=== PATIENT | male | born 1945 | race Caucasian/White ===

== ENCOUNTER → 2021-02-06 16:08 | Outpatient (CLI) | payer MEDICARE, MEDICAID ==
[~2021-02-06 16:08] MED LIST: ACETAMINOPHEN325 MG PO; ASPIRIN81 MG PO; CLARITIN 10 MG10 MG PO; CLEOCIN HCL300 MG PO; CLONIDINE HCL0.1 MG PO; FLORANEX / LACT1 TAB PO; GABAPENTIN300 MG PO; GLIPIZIDE5 MG PO; HYDRALAZINE HCL25 MG PO; LEVEMIR IN100 UNITS/ SC; LEVOXYL25 MCG PO; LISINOPRIL20 MG PO; MAG-OX 400 MG400 MG PO; MELATONIN 3 MG1 TAB PO; METAMUCIL PACKE1 PKT PO; METOPROLOL TART50 MG PO; MUCINEX600 MG PO; NORVASC10 MG PO; NOVOLOG100 UNIT/1 SC; PLAVIX75 MG PO; PRAVASTATIN SOD10 MG PO
[2021-02-08 12:31] VITALS: BMI 32.7
== END | disposition home or self-care (01) ==
LOC: D.MRI 16:00
PROVIDERS: ATTEND Family Medicine
DX: E11.621 Type 2 diabetes mellitus with foot ulcer (principal)

== ENCOUNTER 2021-02-07 12:17 | Inpatient (IN) | payer MEDICARE, MEDICAID ==
[~2021-02-07] VITALS: Ht 182.9 cm; Wt 109.3 kg
[2021-02-07] MEDS ORDERED: ASPIRIN81 MG PO (12:37)
[2021-02-07] MEDS ORDERED: NORVASC10 MG PO (12:37)
[2021-02-07] MEDS ORDERED: FLORANEX / LACT1 TAB PO (12:37)
[2021-02-07] MEDS ORDERED: CLARITIN 10 MG10 MG PO (12:38)
[2021-02-07] MEDS ORDERED: CLEOCIN HCL300 MG PO (12:38)
[2021-02-07] MEDS ORDERED: CLONIDINE HCL0.1 MG PO (12:38)
[2021-02-07] MEDS ORDERED: GLIPIZIDE5 MG PO (12:39)
[2021-02-07] MEDS ORDERED: GABAPENTIN300 MG PO (12:39)
[2021-02-07] MEDS ORDERED: MUCINEX600 MG PO (12:39)
[2021-02-07] MEDS ORDERED: LEVEMIR IN100 UNITS/ SC (12:40)
[2021-02-07] MEDS ORDERED: HYDRALAZINE HCL25 MG PO (12:40)
[2021-02-07] MEDS ORDERED: LEVOXYL25 MCG PO (12:41)
[2021-02-07] MEDS ORDERED: LISINOPRIL20 MG PO (12:41)
[2021-02-07] MEDS ORDERED: METOPROLOL TART50 MG PO (12:41)
[2021-02-07] MEDS ORDERED: MAG-OX 400 MG400 MG PO (12:42)
[2021-02-07] MEDS ORDERED: METAMUCIL PACKE1 PKT PO (12:42)
[2021-02-07] MEDS ORDERED: MELATONIN 3 MG1 TAB PO (12:42)
[2021-02-07] MEDS ORDERED: NOVOLOG100 UNIT/1 SC ×2 (12:43)
[2021-02-07] MEDS ORDERED: PLAVIX75 MG PO (12:44)
[2021-02-07] MEDS ORDERED: PRAVASTATIN SOD10 MG PO (12:44)
[2021-02-07] MEDS ORDERED: ACETAMINOPHEN325 MG PO (12:45)
[2021-02-07 13:12] LABS: BASOPHILS 0.4 % (0-2); EOSINOPHILS 9.4 % (0-7); HEMATOCRIT 39.3 % (42.0-54.0); HEMOGLOBIN 13.1 g/dL (13.5-17.5); LYMPHOCYTES 17.6 % (15-50); MCHC 33.2 g/dL (31.0-37.0); MCV 87.3 fL (80.0-100.0); MEAN PLATELET VOLUME 6.9 fL (7.4-10.4); MONOCYTES 7.4 % (2-11); NEUTROPHILS 65.2 % (40-80); PLATELET COUNT 269 10x3/uL (130-400); RBC 4.51 10x6/uL (4.20-6.10); RDW 14.1 % (11.5-14.5); WBC 9.9 10x3/uL (4.8-10.8)
[2021-02-07 13:20] LABS: ANION GAP 14.7 mmol/L (8-16); CALCIUM 8.8 mg/dL (8.5-10.1); CARBON DIOXIDE 25.7 mmol/L (21.0-32.0); CREATININE - SERUM 1.4 mg/dL (0.6-1.3); POTASSIUM - SERUM 4.4 mmol/L (3.5-5.1)
[2021-02-07 13:26] LABS: ALBUMIN 3.6 g/dL (3.4-5.0); BILIRUBIN - TOTAL 0.43 mg/dL (0.2-1.3); PROTEIN - SERUM 7.6 g/dL (6.4-8.2)
[2021-02-07 17:57] LABS: INR 0.97 (0.85-1.17); PROTIME 11.9 SECONDS (11.6-15.0)
[2021-02-07 18:03] VITALS: BP 122/66; BMI 32.7
--- NOTE | 2021-02-07 18:30 | NUR ---
PATIENT ADMITTED. SITTING UP IN BED EATING WITH NO COMPLAINTS. IV INTACT. VANC INFUSING. CALL LIGHT WITHIN REACH.
[2021-02-07 19:11] LABS: ERYTHROCYTE SEDIMENTATION RATE 46 mm/hr (0-20)
--- NOTE | 2021-02-07 19:30 | NUR ---
AFTER BEDSIDE REPORT PT WAS SODA FLAKER LIGHT, ENTERED PT ROOM AND HE IMMEDIATELY BEGAN YELLING AT THIS NURSE THAT HE DID NOT THINK IV PUMP WAS WORKING. CHECKED PUMP AND EVERTHING WAS WORKING. PT WAS VERY ADAMANT AND CONTINUED TO YELL OVER THIS NURSE THAT IT HAD NOT BEEN WORKING AND THERE WAS NO WAY IN COULD BE DRIPPING IN THE CHAMBER SO SLOW AND BE WORKING. DISCONNECTED PT FROM IV AND SHOWED IT DRIPPING AND EXPLAINED HOW THE PUMP WORKED AND PT CONTINUED TO YELL AT THIS NURSE SAYING "ARE YOU STUPID" AND IT DID NOT MATTER WHAT I SAID BECAUSE HE STILL DID NOT BELIEVE IT WAS WORKING. ANOTHER NURSE CAME TO ROOM AT THIS TIME AND EXPLAINED HOW THE IV PUMP WORKS. PT JUST KEPT STATING "OK WHATEVER YOU SAY." PT DENIED OTHER NEEDS AT THIS TIME. CL IN REACH
[2021-02-07 20:12] VITALS: BP 171/65
--- NOTE | 2021-02-07 21:30 | NUR ---
ENTERED PT ROOM WITH HS MEDS. REVIEWED MEDS WITH PT AND PT BECAME ANGRY STATING WE HAVE HIS MEDS ALL WRONG. PT STATES THAT THE MEDS ARE DIFFERENT COLORS AND SHAPES THAN HE TAKES AT THE [facility]. EXPLAINED TO PT THAT THESE ARE THE SAME MEDS AND DOSAGES THOSE BUT SOME TIMES THEY ARE DISPENSED LOOKING DIFFERENTLY THAN WHAT THEY MAY LOOK LIKE AT HIS FACILITY. PT LAUGHED AND AGAIN STATED THESE ARE NOT THE SAME MEDICATIONS HE TAKES AND BEGAN CALLING THIS NURSE INCOMPETENT. TRIED SEVERAL TIMES TO EXPLAIN TO PT WHY THEY MAY LOOK DIFFERENT BUT PT CONTINUOUSLY YELLED OVER THIS NURSE AND WOULD NOT LET ME SPEAK. THIS NURSE TOLD PT HE COULD EITHER TAKE THE MEDS OR REFUSE, THAT WAS HIS RIGHT BUT THAT I HAVE EXPLAINED MULTIPLE TIMES WHAT EACH MED WAS. PT EVENTUALLY TOOK ALL MEDS. THIS NURSE THEN ATTEMPTED TO DO FSBS. PT CUSSING AT THIS NURSE STATING THAT THIS NURSE AND HOSPITAL CANNOT DO ANYTHING RIGHT, THAT THE IV IS NOT RIGHT, HE IS NOT GETTING THE RIGHT MEDICATIONS AND DID NOT WANT TO THIS NURSE TO CHECK HIS BLOOD SUGAR STATING "I CAN ALREADY TELL YOU IT IS HIGH SO YOU DON'T EVEN HAVE TO CHECK IT, JUST GIVE ME THE ORDERED INSULIN" EXPLAINED TO PT THAT HE WAS ON A SLIDING SCALE SO I COULD ONLY GIVEN HIM INSULIN BASED ON WHAT HIS BLOOD SUGAR. HE STATES MULTIPLE TIMES THAT IT WAS GOING TO BE OVER 300 SO JUST GIVE HIM 12 UNITS THAT THIS NURSE WILL GIVE HIM TOO MUCH AND CAUSE HIS BLOOD SUGAR TO BE TOO LOW. ASKED PT SEVERAL TIMES IF I COULD CHECK HIS SUGAR STILL AND WE WOULD GO FROM THERE. FSBS 277. BASED OFF SLIDING SCALE PT WOULD GET 6 UNITS INSULIN. PT LAUGHED AND YELLED "NO I NEED 12 UNITS" TOLD PT I COULD NOT GIVE HIM MORE THAN WHAT WAS ORDERED THAT IS WHAT THE DOCTOR WANTED. PT STATES "YOU WILL SEE WHEN MY BLOOD SUGAR IS REALLY HIGH. JUST GIVE ME THE DAMN INSULIN" THIS NURSE GAVE PT THE 6 UNITS OF INSULIN. PT THEN ASKED HOW MUCH LANTUS HE WOULD BE GETTING, TOLD PT 55 UNITS. PT LAUGHED AND STATES "WOW THE ONE THING YOU CAN DO RIGHT. WHY IS IT SO HARD TO GIVE ME THE RIGHT AMOUNT OF LANTUS BUT CAN'T GIVE ME THE RIGHT HUMALOG" ATTEMPT SEVERAL TIMES TO EXPLAIN TO PT THAT THIS IS WHAT THE DOCTOR ORDERED AND IF HIS BLOOD SUGAR CONTINUES TO BE HIGH ON THIS SLIDING SCALE THAT IS COULD INCREASED. PT CONTINUED TO YELL OVER ME STATING I WAS GOING TO DO NOTHING AND THAT HE WANTED TO SPEAK WITH THE DOCTOR HIMSELF. EXPLAINED TO PT DOCTOR WAS NOT HERE AT THIS TIME. PT ASKED MULTIPLE TIMES WHY HIS DOCTOR COULD NOT COME TO HIS ROOM RIGHT NOW AND THAT HE CAME TO THE HOSPITAL TO SEE A DOCTOR. ASKED PT WHAT DOCTOR HE WANTED TO SEE. PT STATES HE CAME TO HOSPITAL TO SEE AN ORTHOPEDIC SURGEON. THIS NURSE READ THE ORTHOPEDIC SURGEONS NOTE TO HIM FROM [facility] AND THAT [facility] HAS CONSULTED PODIATRY. PT AT THIS POINT WAS IRATE STATING HE HAS ALREADY SEEN SENIOR BIOINFORMATICS SPECIALIST AND HOW STUPID WE ARE AND HE "NEEDS TO GO TO A DIFFERENT HOSPITAL THAT KNOWS WHAT THEY ARE DOING" TOLD PT HE COULD SPEAK TO THE ORTHOPEDIC SURGEON ABOUT THAT TOMORROW. PT THEN ASKED THIS NURSE TO LEAVE THE ROOM AFTER GIVING HIM HIS INSULIN AND SENDING IN SOMEONE WHO KNOWS WHAT THEY ARE DOING. HORTICULTURAL WORKER NOTIFIED.
[2021-02-08 07:13] LABS: EOSINOPHILS 8.1 % (0-7); HEMATOCRIT 35.9 % (42.0-54.0); LYMPHOCYTES 9.8 % (15-50); MCH 29.3 pg (26.0-34.0); MCHC 33.4 g/dL (31.0-37.0); MCV 87.8 fL (80.0-100.0); MONOCYTES 5.8 % (2-11); NEUTROPHILS 75.3 % (40-80); PLATELET COUNT 238 10x3/uL (130-400); RBC 4.09 10x6/uL (4.20-6.10); RDW 14.5 % (11.5-14.5); WBC 8.3 10x3/uL (4.8-10.8)
[2021-02-08 07:16] LABS: ALBUMIN 3.1 g/dL (3.4-5.0); ANION GAP 13.8 mmol/L (8-16); BILIRUBIN - TOTAL 0.43 mg/dL (0.2-1.3); CALCIUM 8.5 mg/dL (8.5-10.1); CREATININE - SERUM 1.5 mg/dL (0.6-1.3); POTASSIUM - SERUM 4.8 mmol/L (3.5-5.1); PROTEIN - SERUM 6.8 g/dL (6.4-8.2)
--- NOTE | 2021-02-08 10:00 | NUR ---
PATIENT IN BED WITH IV INTACT. NO COMPLAINTS OR SIGNS OF DISTRESS. STATED HE DOESNT USE LANTUS IN A PEN AND DOESNT WANT TO TAKE MIRALAX STATED HE TAKES METAMUCIL TABLETS. EXPLAINED I WOULD ASK IF PHARMACY CARRIED THE VIAL AND METAMUCIL TABS. VERBALIZED UNDERSTANDING.
--- NOTE | 2021-02-08 11:20 | NUR ---
EXPLAINED TO PATIENT PHARMACY DOESNT HAVE A VIAL OF LANTUS OR THE METAMUCIL TABS. PATIENT STATED HE WOULD JUST TAKE WHAT WE HAVE.
--- NOTE | 2021-02-08 11:40 | NUR ---
URINE COLLECTED AND SENT TO LAB.
[2021-02-08 12:31] VITALS: Ht 182.9 cm; Wt 109.3 kg
[2021-02-08 12:53] VITALS: BP 151/67
--- NOTE | 2021-02-08 13:09 | NUR ---
PATIENT IN BED EATING AT THIS TIME. NO COMPLAINTS OR SIGNS OF DISTRESS. CALL LIGHT WITHIN REACH.
[2021-02-08 13:19] LABS: BILIRUBIN NEGATIVE (NEGATIVE); KETONE NEGATIVE (NEGATIVE); NITRITE NEGATIVE (NEGATIVE); UROBILINOGEN NORMAL mg/dL (< 2)
[2021-02-08 13:20] LABS: BACTERIA RARE HPF (NONE SEEN); SQUAMOUS EPITHELIAL 0-5 HPF (0-4); WHITE CELLS - URINE 0-5 HPF (0-1)
--- NOTE | 2021-02-08 14:38 | NUR ---
PATIENT IN BED RESTING QUIETLY. IV INTACT. VANC INFUSING. CALL LIGHT IN REACH.
[2021-02-08 17:05] VITALS: BP 160/63
--- NOTE | 2021-02-08 17:55 | NUR ---
PATIENT IN BED WITH IV INTACT. NO COMPLAINTS OR SIGNS OF DISTRESS. CALL LIGHT WITHIN REACH.
[2021-02-08 21:57] VITALS: BP 159/70
--- NOTE | 2021-02-09 03:56 | NUR ---
I have reviewed this patient and I concur with the Shift Assessment completed by the Licensed Practical Nurse today this shift.
--- NOTE | 2021-02-09 07:25 | NUR ---
REC'D IN BED WITH EYES CLOSED EASILY TO AROUSED WHEN NAME IS CALLED. RESP EVEN AND UNLABORED WITH NO DISTRESS NOTED. CAN EXPRESS NEEDS AND WANTS. NO C/O NOTED. ASSESSMENT COMPLETED. C/L IN REACH AT BEDSIDE.
--- NOTE | 2021-02-09 08:00 | NUR ---
PATIENT IS WITHOUT DISTRESS.CALL LIGHT IN [facility] [place]
[2021-02-09 09:28] VITALS: BP 154/57
[2021-02-09 11:48] LABS: BASOPHILS 0.8 % (0-2); EOSINOPHILS 12.2 % (0-7); HEMATOCRIT 36.7 % (42.0-54.0); HEMOGLOBIN 12.1 g/dL (13.5-17.5); LYMPHOCYTES 9.7 % (15-50); MCH 29.1 pg (26.0-34.0); MCHC 33.1 g/dL (31.0-37.0); MCV 87.9 fL (80.0-100.0); MEAN PLATELET VOLUME 6.8 fL (7.4-10.4); MONOCYTES 8.1 % (2-11); NEUTROPHILS 69.2 % (40-80); PLATELET COUNT 231 10x3/uL (130-400); RBC 4.18 10x6/uL (4.20-6.10); RDW 14.3 % (11.5-14.5); WBC 7.7 10x3/uL (4.8-10.8)
[2021-02-09 12:00] LABS: ANION GAP 12.5 mmol/L (8-16); BILIRUBIN - TOTAL 0.46 mg/dL (0.2-1.3); CALCIUM 8.5 mg/dL (8.5-10.1); CARBON DIOXIDE 24.3 mmol/L (21.0-32.0); CREATININE - SERUM 1.7 mg/dL (0.6-1.3); POTASSIUM - SERUM 4.8 mmol/L (3.5-5.1); PROTEIN - SERUM 6.6 g/dL (6.4-8.2)
[2021-02-09 12:16] VITALS: BP 146/82
--- NOTE | 2021-02-09 13:27 | NUR ---
PICC LINE CONSULT RELAYED TO DR ESTRADA [facility] AT 1330. WILL PUT IN PICC LINE 02/10. NURSE AIMEE MUNIZ
[2021-02-09 17:08] VITALS: BP 148/50
[2021-02-09 20:00] VITALS: BP 177/67
--- NOTE | 2021-02-09 22:00 | NUR ---
WATCHING TV QUEITLY WITH NO COMPLAINTS VOICED. CL IN REACH
[2021-02-10 00:53] VITALS: BP 150/55
[2021-02-10 07:07] LABS: BASOPHILS 0.6 % (0-2); EOSINOPHILS 13.1 % (0-7); HEMATOCRIT 34.8 % (42.0-54.0); HEMOGLOBIN 11.7 g/dL (13.5-17.5); LYMPHOCYTES 15.3 % (15-50); MCH 29.2 pg (26.0-34.0); MCHC 33.5 g/dL (31.0-37.0); MCV 87.2 fL (80.0-100.0); MEAN PLATELET VOLUME 6.9 fL (7.4-10.4); MONOCYTES 8.1 % (2-11); NEUTROPHILS 62.9 % (40-80); PLATELET COUNT 233 10x3/uL (130-400); RBC 3.99 10x6/uL (4.20-6.10); RDW 14.5 % (11.5-14.5)
--- NOTE | 2021-02-10 07:49 | NUR ---
IN BED RESTING. BED LOW POSITION, CALL LIGHT IN REACH. FREE FROM SIGNS OF DISTRESS. AROUSES TO VOICE. WILL CONITNUE TO MONITOR.
[2021-02-10 08:05] LABS: ANION GAP 12.3 mmol/L (8-16); BILIRUBIN - TOTAL 0.36 mg/dL (0.2-1.3); CARBON DIOXIDE 25.2 mmol/L (21.0-32.0); CREATININE - SERUM 1.5 mg/dL (0.6-1.3); POTASSIUM - SERUM 4.5 mmol/L (3.5-5.1); PROTEIN - SERUM 6.1 g/dL (6.4-8.2)
[2021-02-10 08:53] VITALS: BP 167/69
--- NOTE | 2021-02-10 10:34 | NUR ---
WENT TO SPEAK TO PATIENT ABOUT SIGNING CONSENT FOR PICC LINE PLACEMENT. REFUSED TO SIGN WITHOUT SPEAKING TO SOMEONE FIRST. CALLED [facility] AND THEY CAME UP TO TALK TO PATIENT. WITH EDUCATION PATIENT STILL REFUSED TO SIGN THE CONSENT FORM. SAID THEY WANTED TO TALK TO THE DOCTOR FIRST.
[2021-02-10 12:58] VITALS: BP 171/73
[2021-02-10 17:11] VITALS: BP 173/76
[2021-02-10 20:00] VITALS: BP 162/66
--- NOTE | 2021-02-11 03:00 | NUR ---
I have reviewed this patient and I concur with the Shift Assessment completed by the Licensed Practical Nurse today this shift.
[2021-02-11 04:00] VITALS: BP 151/56
[2021-02-11 05:29] LABS: BASOPHILS 0.5 % (0-2); EOSINOPHILS 13.8 % (0-7); HEMATOCRIT 35.4 % (42.0-54.0); LYMPHOCYTES 14.5 % (15-50); MCH 29.5 pg (26.0-34.0); MCHC 33.8 g/dL (31.0-37.0); MCV 87.4 fL (80.0-100.0); MEAN PLATELET VOLUME 6.8 fL (7.4-10.4); MONOCYTES 6.9 % (2-11); NEUTROPHILS 64.3 % (40-80); PLATELET COUNT 232 10x3/uL (130-400); RBC 4.06 10x6/uL (4.20-6.10); RDW 14.3 % (11.5-14.5); WBC 7.8 10x3/uL (4.8-10.8)
[2021-02-11 06:00] LABS: ANION GAP 12.5 mmol/L (8-16); BILIRUBIN - TOTAL 0.46 mg/dL (0.2-1.3); CALCIUM 8.6 mg/dL (8.5-10.1); CARBON DIOXIDE 25.5 mmol/L (21.0-32.0); CREATININE - SERUM 1.5 mg/dL (0.6-1.3); PROTEIN - SERUM 6.4 g/dL (6.4-8.2)
--- NOTE | 2021-02-11 09:12 | NUR ---
PT SITTING UP TO SIDE OF BED EATING BREAKFAST, MEDS GIVEN, PT REFUSED HIS LANTUS THIS MORNING AND STATES THAT IT DOES NOT WORK AND HE WANT THE SHORT ACTING WHICH HE WAS GIVEN THIS MORNING BY MEDICAL SALES CONSULTANT, STATES THAT HE IS UPSET ABOUT WHAT TIME FSBS AND INSULIN ARE GIVEN, PT WAS NEEDING TO HAVE A BOWEL MOVEMENT AND TOLD ME TO HURRY UP AND GET OUT SO HE COULS USE THE RESTROOM, PT CONTINUED TO ARGUE AND BE RUDE ABOUT THE INSULIN WHEN THIS RN ATTEMPTED TO MAKE A PLAN WITH HIM
--- NOTE | 2021-02-11 10:23 | NUR ---
PATIENT ABLE TO GET UP TO BEDSIDE BY HIMSELF. PATIENT ONLY WOULD SIT UP AT BEDSIDE, REFUSED GOING TO CHAIR.
[2021-02-11 12:50] VITALS: BP 144/53
--- NOTE | 2021-02-11 16:40 | NUR ---
HAD LONG DISCUSSION WITH PT ABOUT INSULIN, PT IS FRUSTRATED THAT FSBG ARE NOT BEING TAKEN AT THE APPROPRIATE TIME TO ENSURE HE GET THE RIGHT AMOUNT OF INSULIN, PER PT HE GETS 20 UNITS THREE TIMES PER DAY WITH MEALS AND 12 UNITS AT NIGHT BEFORE BED IF NEEDED INDICATED BY FSBG, WOULD LIKE TO HAVE BG CHECKED CLOSER TO MEAL TIMES AND BE GIVEN THE 20 UNITS WITH EACH MEAL AND THEN AT NIGHT BEFORE BED. PT IS STILL REFUSING PICC LINE AND STATES HE PLANS TO HAVE SECOND OPINION AND GO BACK TO DOCTOR THAT PERFORMED FIRST AMPUTATION AND HAVE HIM PUT IN THE PICC LINE IF NEEDED
[2021-02-11 18:27] VITALS: BP 157/54
--- NOTE | 2021-02-11 19:15 | NUR ---
BEDSIDE REPORT RECEIVED. PT REFUSING IV AND PICC. EDUCATED PT ON NEED FOR IV ABX AND RISKS OF UNTREATED OSTEOMYLITIS. PT REPORTS HE HAD A PICC BEFORE AND STILL HAD TO GET AN AMPUTATION, SO WOULD NOT LIKE TO HAVE IV ACCESS.
[2021-02-11 20:00] VITALS: BP 145/70
[2021-02-12] VITALS: BP 128/61
--- NOTE | 2021-02-12 02:52 | NUR ---
I have reviewed this patient and I concur with the Shift Assessment completed by the Licensed Practical Nurse today this shift.
[2021-02-12 05:05] LABS: EOSINOPHILS 12.4 % (0-7); HEMOGLOBIN 11.7 g/dL (13.5-17.5); LYMPHOCYTES 17.7 % (15-50); MCHC 33.4 g/dL (31.0-37.0); MEAN PLATELET VOLUME 6.8 fL (7.4-10.4); MONOCYTES 7.4 % (2-11); NEUTROPHILS 61.5 % (40-80); PLATELET COUNT 250 10x3/uL (130-400); RBC 4.02 10x6/uL (4.20-6.10); RDW 14.6 % (11.5-14.5); WBC 7.8 10x3/uL (4.8-10.8)
[2021-02-12 05:32] LABS: ALBUMIN 3.1 g/dL (3.4-5.0); ANION GAP 12.5 mmol/L (8-16); BILIRUBIN - TOTAL 0.33 mg/dL (0.2-1.3); CALCIUM 8.6 mg/dL (8.5-10.1); CARBON DIOXIDE 25.7 mmol/L (21.0-32.0); CREATININE - SERUM 1.4 mg/dL (0.6-1.3); POTASSIUM - SERUM 4.2 mmol/L (3.5-5.1); PROTEIN - SERUM 6.7 g/dL (6.4-8.2)
--- NOTE | 2021-02-12 07:54 | NUR ---
SPOKE WITH PT NURSE RAUL REGARDING PICC LINE AGAIN AND RAUL STATES PT IS REFUSING ONCE AGAIN AND DOES NOT WANT THE PICC LINE. PT STATES TO HER THAT HE WANTS TO BE DISCHARGED AND FOLLOW UP WITH THE DR WHO DID HIS AMPUTATION. NOTIFIED IR TEAM THAT PT HAS REFUSED PICC LINE.
[2021-02-12 08:56] VITALS: BP 180/88
--- NOTE | 2021-02-12 09:10 | NUR ---
DISCUSSED AT LENGTH YESTERDAY THE TIMING AND DOSE FOR INSULIN. TODAY PT WAS AGREEANT TO FSBG LATER THAN SCHEDULED, BG CHECKED AT 0800, PT REFUSED INSULIN AT THE TIME AND AGREED FOR ME TO COME BACK LATER WHEN HIS MEAL TRAY GOT THERE. GOT BACK TO PT ROOM AT 0850, PT STATES TO LATE AND AT FIRST REFUSED INSULIN AND LANTUS, AFTER 15 MINUTES OF PT AGRUEING ABOUT INSULIN HE AGREED TO GET 8 UNITS OF INSULIN AND 55 UNITS ORDERED LANTUS
[2021-02-12 12:38] VITALS: BP 214/90
--- NOTE | 2021-02-12 12:57 | MORECARE ---
CASE MANAGEMENT DISCHARGE SUMMARY PATIENT: EJ ANTONIO UNIT: [id number] ADM DATE: 02/07/21 AGE: 75 : 46 SEX: M ROOM/BED: D.2209 AUTHOR: LENORE POPE PHYSICIAN: REFERRING PHYSICIAN: ADOLPH VARMA MD DATE OF SERVICE: 02/12/21 Case Management Discharge Planning Summary DCP REVIEW SUMMARY ANTICIPATED D/C DATE: EXPECTED LOS : CASE STATUS: DCP Initiated INITIAL REVIEW: 02/07/2021 INITIAL REVIEWER: Sobia Morrison FINAL DISCHARGE DISPOSITION: : FINAL REVIEWER: FINAL REVIEW DATE: DCP Focus Questions & Answers QUESTION: ANSWER : PATIENT: EJ ANTONIO ENCOUNTER: [id number] MEDICAL RECORD#: [id number] ADMISSION DATE: 02/07/2021 DISCHARGE DATE: ATTENDING MD: VALERIO RAMIREZ : AGE: 75 MARITAL STATUS: D DC PLAN ID: [id number] FACILITY: [facility] PRINTED ON: 02/12/21 12:57 CT All edits/amendments must be made on the electronic document DICTATION DATE: 02/12/21 1257 STITCHER SET UP OPERATOR AUTOMATIC: DM 02/12/21 1257 RPT#: [id number] DC DATE: STATUS: ADM IN [facility] [address] [place] [address] END OF REPORT
--- NOTE | 2021-02-12 13:08 | NUR ---
Nutrition follow-up: Pt receiving a consistent CHO diet with po intake 75-100% of meals Labs reviewed; Glucose elevated Pt taking 20 units of insulin before each meal and 12 units at bedtime. Wt: 241# +BM Will continue to provide food choices and honor food preferences within diet restrictions. RDN will follow-up on progress toward nutrition goals in 5-7 days.
--- NOTE | 2021-02-12 13:10 | MORECARE ---
CASE MANAGEMENT DISCHARGE SUMMARY PATIENT: EJ ANTONIO UNIT: [id number] ADM DATE: 02/07/21 AGE: 75 : 46 SEX: M ROOM/BED: D.2209 AUTHOR: TOSHIA,DOC PHYSICIAN: REFERRING PHYSICIAN: ADOLPH VARMA MD DATE OF SERVICE: 02/12/21 Case Management Discharge Planning Summary COMMENTS ENTERED DATE: 02/12/21 12:57 CT COMMENT TYPE: Discharge Planning REVIEWER: Sobia Morrison CM met with patient to complete initial dc planning assessment. CM educated patient on the CM role and verbal consent given by patient to complete assessment. Patient lives at [place] where he is a long-term resident. He has lived there for a little more than 2 years. At discharge patient plans to return home to [place] and feels this is a safe discharge. He uses a wheelchair at the facility. He is not on any O2 at [place]. Patient denied known discharge needs at this time. IMM served and explained. CM will continue to follow and will assist as needed with dc plans/needs. DCP REVIEW SUMMARY ANTICIPATED D/C DATE: EXPECTED LOS : CASE STATUS: DCP Initiated INITIAL REVIEW: 02/07/2021 INITIAL REVIEWER: Sobia Morrison FINAL DISCHARGE DISPOSITION: : FINAL REVIEWER: FINAL REVIEW DATE: DCP Focus Questions & Answers QUESTION: ANSWER : PATIENT: EJ ANTONIO ENCOUNTER: [id number] MEDICAL RECORD#: [id number] ADMISSION DATE: 02/07/2021 DISCHARGE DATE: ATTENDING MD: VALERIO RAMIREZ : AGE: 75 MARITAL STATUS: D DC PLAN ID: [id number] FACILITY: [facility] PRINTED ON: 02/12/21 13:10 CT All edits/amendments must be made on the electronic document DICTATION DATE: 02/12/21 131 LOAN APPROVER: FUNMILAYO 02/12/21 1310 RPT#: [id number] DC DATE: STATUS: ADM IN [facility] [address] [place] [address] END OF REPORT
--- NOTE | 2021-02-12 14:35 | NUR ---
DRESSING REMOVED FROM LEFT FOOT, WOUND CLEANED WITH SPRAY CLEANSER, WOUND HAS PINK WOUND BED WITH NEW WHITE TISSUE STARTING TO GROW AROUND BOTTOM PORTION, COVERED WITH BETADINE WET TO DRY DRESSING, WRAPPED WITH CURLEX, AND SECURED WITH TAPE, INTIALS AND DATED
--- NOTE | 2021-02-12 15:50 | NUR ---
OT NOTE: PT COMPLETED BED MOBILITY WITH SBA. PT COMPLETED BED TO BSC TSF WITH CGA. PT COMPLETED BUE AROM EXS TOLERATED. PT COMPLETED FACE HYGIENE WITH SETUP. [phone] THANK YOU,RAFAEL MENDOSA
[2021-02-12 20:00] VITALS: BP 168/70
[2021-02-13] VITALS: BP 136/78
--- NOTE | 2021-02-13 03:23 | NUR ---
I have reviewed this patient and I concur with the Shift Assessment completed by the Licensed Practical Nurse today this shift.
--- NOTE | 2021-02-13 06:08 | NUR ---
PT NOT ALLOWING FSBS UNTIL AFTER HE EATS BREAKFAST
[2021-02-13 06:11] LABS: BASOPHILS 1.3 % (0-2); EOSINOPHILS 8.4 % (0-7); HEMATOCRIT 36.1 % (42.0-54.0); LYMPHOCYTES 16.3 % (15-50); MCHC 33.4 g/dL (31.0-37.0); MCV 86.9 fL (80.0-100.0); MONOCYTES 6.4 % (2-11); NEUTROPHILS 67.6 % (40-80); PLATELET COUNT 249 10x3/uL (130-400); RBC 4.15 10x6/uL (4.20-6.10); RDW 14.7 % (11.5-14.5)
[2021-02-13 06:53] LABS: ALBUMIN 3.2 g/dL (3.4-5.0); ANION GAP 14.6 mmol/L (8-16); BILIRUBIN - TOTAL 0.39 mg/dL (0.2-1.3); CALCIUM 8.9 mg/dL (8.5-10.1); CARBON DIOXIDE 25.2 mmol/L (21.0-32.0); CREATININE - SERUM 1.3 mg/dL (0.6-1.3); POTASSIUM - SERUM 3.8 mmol/L (3.5-5.1)
[2021-02-13 07:19] LABS: WBC 10.1 10x3/uL (4.8-10.8)
--- NOTE | 2021-02-13 07:34 | NUR ---
RECIEVED BEDSIDE REPORT. BED LOW POSITION, CALL LIGHT IN REACH. DENIES NEEDS AT THIS TIME. WILL CONTINUE TO MONITOR.
--- NOTE | 2021-02-13 08:14 | MORECARE ---
CASE MANAGEMENT DISCHARGE SUMMARY PATIENT: EJ ANTONIO UNIT: [id number] ADM DATE: 02/07/21 AGE: 75 : 46 SEX: M ROOM/BED: D.2209 AUTHOR: TOSHIA,LENORE PHYSICIAN: REFERRING PHYSICIAN: ADOLPH VARMA MD DATE OF SERVICE: 02/13/21 Case Management Discharge Planning Summary COMMENTS ENTERED DATE: 02/13/21 8:12 CT COMMENT TYPE: Discharge Planning REVIEWER: Sobia Morrison SPOKE WITH GENNY HANSEN AT [facility] TO SEE IF THIS WOULD BE AN OPTION, FAXED REFERAL OVER TO CHERISE ROGERS ENTERED DATE: 02/12/21 12:57 CT COMMENT TYPE: Discharge Planning REVIEWER: Sobia Morrison CM met with patient to complete initial dc planning assessment. CM educated patient on the CM role and verbal consent given by patient to complete assessment. Patient lives at [place] where he is a long-term resident. He has lived there for a little more than 2 years. At discharge patient plans to return home to [place] and feels this is a safe discharge. He uses a wheelchair at the facility. He is not on any O2 at [place]. Patient denied known discharge needs at this time. IMM served and explained. CM will continue to follow and will assist as needed with dc plans/needs. DCP REVIEW SUMMARY ANTICIPATED D/C DATE: EXPECTED LOS : CASE STATUS: DCP Initiated INITIAL REVIEW: 02/07/2021 INITIAL REVIEWER: Sobia Morrison FINAL DISCHARGE DISPOSITION: : FINAL REVIEWER: FINAL REVIEW DATE: DCP Focus Questions & Answers QUESTION: ANSWER : PATIENT: EJ ANTONIO ENCOUNTER: [id number] MEDICAL RECORD#: [id number] ADMISSION DATE: 02/07/2021 DISCHARGE DATE: ATTENDING MD: VALERIO RAMIREZ : AGE: 75 MARITAL STATUS: D DC PLAN ID: [id number] FACILITY: [facility] PRINTED ON: 02/13/21 8:13 CT All edits/amendments must be made on the electronic document DICTATION DATE: 02/13/21812 PYROTECHNIC MIXER: FUNMILAYO 02/13/21812 RPT#: [id number] DC DATE: STATUS: ADM IN [facility] [address] [place] [address] END OF REPORT
[2021-02-13 09:24] VITALS: BP 193/59
--- NOTE | 2021-02-13 11:04 | MORECARE ---
CASE MANAGEMENT DISCHARGE SUMMARY PATIENT: EJ ANTONIO UNIT: [id number] ADM DATE: 02/07/21 AGE: 75 : 46 SEX: M ROOM/BED: D.2209 AUTHOR: TOSHIA,LENORE PHYSICIAN: REFERRING PHYSICIAN: ADOLPH VARMA MD DATE OF SERVICE: 02/13/21 Case Management Discharge Planning Summary COMMENTS ENTERED DATE: 02/13/21 8:12 CT COMMENT TYPE: Discharge Planning REVIEWER: Sobia Morrison SPOKE WITH GENNY HANSEN AT [facility] TO SEE IF THIS WOULD BE AN OPTION, FAXED REFERAL OVER TO CHERISE ROGERS ENTERED DATE: 02/12/21 12:57 CT COMMENT TYPE: Discharge Planning REVIEWER: Sobia Morrison CM met with patient to complete initial dc planning assessment. CM educated patient on the CM role and verbal consent given by patient to complete assessment. Patient lives at [place] where he is a long-term resident. He has lived there for a little more than 2 years. At discharge patient plans to return home to [place] and feels this is a safe discharge. He uses a wheelchair at the facility. He is not on any O2 at [facility]. Patient denied known discharge needs at this time. IMM served and explained. CM will continue to follow and will assist as needed with dc plans/needs. DCP REVIEW SUMMARY ANTICIPATED D/C DATE: EXPECTED LOS : CASE STATUS: DCP Initiated INITIAL REVIEW: 02/07/2021 INITIAL REVIEWER: Sobia Morrison FINAL DISCHARGE DISPOSITION: : FINAL REVIEWER: FINAL REVIEW DATE: DCP Focus Questions & Answers QUESTION: ANSWER : PATIENT: EJ ANTONIO ENCOUNTER: [id number] MEDICAL RECORD#: [id number] ADMISSION DATE: 02/07/2021 DISCHARGE DATE: ATTENDING MD: VALERIO RAMIREZ : AGE: 75 MARITAL STATUS: D DC PLAN ID: [id number] FACILITY: [facility] PRINTED ON: 02/13/21 11:03 CT All edits/amendments must be made on the electronic document DICTATION DATE: 02/13/211102 VINYL FLOORING INSTALLER: FUNMILAYO 02/13/21 1103 RPT#: [id number] DC DATE: STATUS: ADM IN [facility] [address] [place] [address] END OF REPORT
[2021-02-13 11:52] VITALS: BP 173/73
--- NOTE | 2021-02-13 12:12 | MORECARE ---
CASE MANAGEMENT DISCHARGE SUMMARY PATIENT: EJ ANTONIO UNIT: [id number] ADM DATE: 02/07/21 AGE: 75 : 46 SEX: M ROOM/BED: D.2209 AUTHOR: TOSHIA,DOC PHYSICIAN: REFERRING PHYSICIAN: ADOLPH VARMA MD DATE OF SERVICE: 02/13/21 Case Management Discharge Planning Summary COMMENTS ENTERED DATE: 02/13/21 12:02 CT COMMENT TYPE: Discharge Planning REVIEWER: Sobia Morrison I CALLED OUT TO [facility] AND SPOKE WITH GRIFFIN AND GAVE HER AN UPDATE ON WHAT THE MD WAS RECOMMEND AND HOW THE PATIENT WOULD LIKE TO GET TREATMENT FROM DR PATINO. SHE STATED THAT SHE WOULD CALL HIM AND TRY TO SPEAK WITH HIM AND GET WITH HER ADMIN AND GET BACK WITH ME CM TO FOLLOW AND ASSIST ENTERED DATE: 02/13/21 8:12 CT COMMENT TYPE: Discharge Planning REVIEWER: Sobia Morrison SPOKE WITH GENNY HANSEN AT [facility] TO SEE IF THIS WOULD BE AN OPTION, FAXED REFERAL OVER TO CHERISE ROGERS ENTERED DATE: 02/12/21 12:57 CT COMMENT TYPE: Discharge Planning REVIEWER: Sobia Morrison CM met with patient to complete initial dc planning assessment. CM educated patient on the CM role and verbal consent given by patient to complete assessment. Patient lives at [place] where he is a long-term resident. He has lived there for a little more than 2 years. At discharge patient plans to return home to [place] and feels this is a safe discharge. He uses a wheelchair at the facility. He is not on any O2 at [place]. Patient denied known discharge needs at this time. IMM served and explained. CM will continue to follow and will assist as needed with dc plans/needs. DCP REVIEW SUMMARY ANTICIPATED D/C DATE: EXPECTED LOS : CASE STATUS: DCP Initiated INITIAL REVIEW: 02/07/2021 INITIAL REVIEWER: Sobia Morrison FINAL DISCHARGE DISPOSITION: : FINAL REVIEWER: FINAL REVIEW DATE: DCP Focus Questions & Answers QUESTION: ANSWER : PATIENT: EJ ANTONIO ENCOUNTER: [id number] MEDICAL RECORD#: [id number] ADMISSION DATE: 02/07/2021 DISCHARGE DATE: ATTENDING MD: VALERIO RAMIREZ : AGE: 75 MARITAL STATUS: D DC PLAN ID: [id number] FACILITY: [facility] PRINTED ON: 02/13/21 12:12 CT All edits/amendments must be made on the electronic document DICTATION DATE: 02/13/21 121 EXPORT SALES ASSISTANT: DM 02/13/21 1212 RPT#: [id number] DC DATE: STATUS: ADM IN [facility] [address] [place] [address] END OF REPORT
--- NOTE | 2021-02-13 14:02 | NUR ---
PATIENT IS INDEPENENT SIGNED OFF TO NSG
[2021-02-13 16:18] VITALS: BP 124/62
[2021-02-13 20:00] VITALS: BP 146/73
--- NOTE | 2021-02-13 20:07 | NUR ---
changed dressing to left foot per daily dressing change orders. patient tollerated well. no drainage noted when removing old bandage.
[2021-02-14] VITALS: BP 146/73; BP 160/77
--- NOTE | 2021-02-14 04:15 | NUR ---
I have reviewed this patient and I concur with the Shift Assessment completed by the Licensed Practical Nurse today this shift.
[2021-02-14 06:31] LABS: BASOPHILS 0.8 % (0-2); EOSINOPHILS 6.7 % (0-7); HEMATOCRIT 34.6 % (42.0-54.0); HEMOGLOBIN 11.8 g/dL (13.5-17.5); LYMPHOCYTES 20.5 % (15-50); MCH 29.7 pg (26.0-34.0); MCHC 34.1 g/dL (31.0-37.0); MEAN PLATELET VOLUME 7.1 fL (7.4-10.4); MONOCYTES 8.2 % (2-11); NEUTROPHILS 63.8 % (40-80); PLATELET COUNT 242 10x3/uL (130-400); RBC 3.98 10x6/uL (4.20-6.10); RDW 14.8 % (11.5-14.5); WBC 9.5 10x3/uL (4.8-10.8)
[2021-02-14 06:48] LABS: ALBUMIN 3.1 g/dL (3.4-5.0); BILIRUBIN - TOTAL 0.39 mg/dL (0.2-1.3); CALCIUM 8.9 mg/dL (8.5-10.1); CARBON DIOXIDE 27.1 mmol/L (21.0-32.0); CREATININE - SERUM 1.5 mg/dL (0.6-1.3); POTASSIUM - SERUM 4.1 mmol/L (3.5-5.1); PROTEIN - SERUM 6.9 g/dL (6.4-8.2)
--- NOTE | 2021-02-14 07:43 | NUR ---
RECIEVED BEDSIDE REPORT. BED LOW POSITION, CALL LIGHT IN REACH. AROUSES TO VOICE, DENIES NEEDS AT THIS TIME. FREE FROM SIGNS OF DISTRESS. WILL CONTINUE TO MONITOR.
[2021-02-14] MEDS ORDERED: PROTONIX40 MG PO (11:29)
[2021-02-14] MEDS ORDERED: ZYVOX600 MG PO (11:29)
--- NOTE | 2021-02-14 15:35 | NUR ---
PATIENT COMPLAINING ABOUT ENLARGED AREA ON LEFT SIDE OF NECK. NOTIFIED JANIYA STEIN APN. PATIENT FREE FROM SIGNS OF DISTRESS. WILL CONITNUE TO MONITOR.
--- NOTE | 2021-02-14 17:13 | NUR ---
OT NOTE: PT COMPLETED BED MOBILITY WITH SBA. PT COMPLETED BUE AROM EXS TOLERATED. PT ABLE TO TSF TO BSC WITH SBA. PT HAD C/O OF LUMP IN THROAT. NOTIFIED NURSING. [id number] THANK YOU,RAFAEL MENDOSA
[2021-02-14 17:34] VITALS: BP 128/65; BP 158/77
[2021-02-14 20:00] VITALS: BP 122/68
--- NOTE | 2021-02-14 20:27 | NUR ---
PATIENT SITTING UP IN BED WATCHING BASKETBALL, STATED " SINCE YOU ARE NEW, I TAKE MY MEDICATIONS A LITTLE BIT AT A TIME NOT ALL AT ONCE, LIGHTS ARE TO BE TURNED OFF AND NO ONE TO BOTHER ME UNTIL AFTER 5 AM" EXPLAINED TO PATIENT I AM AWARE OF HIS ROUTINE WE HAVE DISCUSSED THIS DURING WALKING ROUNDS AND I WILL TRY MY BEST TO NOT DISTURB HIM UNLESS NECESSARY FOR HIS PLAN OF CARE. NO OTHER NEEDS OR DEMANDS VOICED AT THIS TIME, CONTINUE WITH PLAN OF CARE
[2021-02-15] VITALS: BP 120/75
--- NOTE | 2021-02-15 04:54 | NUR ---
I have reviewed this patient and I concur with the Shift Assessment completed by the Licensed Practical Nurse today this shift.
--- NOTE | 2021-02-15 07:48 | NUR ---
RESTING IN BED WITH EYES CLOSED, EASILY AROUSED TO SPEECH. NO IV PRESENT. NO CURRENT S/S OF DISTRESS, DENIES NEEDS AT THIS TIME, WILL CONT TO MONITOR.
[2021-02-15] MEDS ORDERED: ZYVOX600 MG PO (08:19)
--- NOTE | 2021-02-15 09:39 | MORECARE ---
CASE MANAGEMENT DISCHARGE SUMMARY PATIENT: EJ ANTONIO UNIT: [id number] ADM DATE: 02/07/21 AGE: 75 : 46 SEX: M ROOM/BED: D.2209 AUTHOR: TOSHIA,DOC PHYSICIAN: REFERRING PHYSICIAN: ADOLPH VARMA MD DATE OF SERVICE: 02/15/21 Case Management Discharge Planning Summary COMMENTS ENTERED DATE: 02/15/21 9:37 CT COMMENT TYPE: Discharge Planning REVIEWER: Sobia Morrison PATIENT DISCHARGING TODAY AT 10:00 THEY WILL TRANSPORT HIM, HE IS A [facility] RESIDENT ENTERED DATE: 02/13/21 12:02 CT COMMENT TYPE: Discharge Planning REVIEWER: Sobia Morrison I CALLED OUT TO [facility] AND SPOKE WITH GRIFFIN AND GAVE HER AN UPDATE ON WHAT THE MD WAS RECOMMEND AND HOW THE PATIENT WOULD LIKE TO GET TREATMENT FROM DR PATINO. SHE STATED THAT SHE WOULD CALL HIM AND TRY TO SPEAK WITH HIM AND GET WITH HER ADMIN AND GET BACK WITH ME CM TO FOLLOW AND ASSIST ENTERED DATE: 02/13/21 8:12 CT COMMENT TYPE: Discharge Planning REVIEWER: Sobia Morrison SPOKE WITH GENNY HANSEN AT [facility] TO SEE IF THIS WOULD BE AN OPTION, FAXED REFERAL OVER TO CHERISE ROGERS ENTERED DATE: 02/12/21 12:57 CT COMMENT TYPE: Discharge Planning REVIEWER: Sobia Morrison CM met with patient to complete initial dc planning assessment. CM educated patient on the CM role and verbal consent given by patient to complete assessment. Patient lives at [place] where he is a long-term resident. He has lived there for a little more than 2 years. At discharge patient plans to return home to [place] and feels this is a safe discharge. He uses a wheelchair at the facility. He is not on any O2 at [place]. Patient denied known discharge needs at this time. IMM served and explained. CM will continue to follow and will assist as needed with dc plans/needs. DCP REVIEW SUMMARY ANTICIPATED D/C DATE: EXPECTED LOS : CASE STATUS: DCP Initiated INITIAL REVIEW: 02/07/2021 INITIAL REVIEWER: Sobia Morrison FINAL DISCHARGE DISPOSITION: : FINAL REVIEWER: FINAL REVIEW DATE: DCP Focus Questions & Answers QUESTION: ANSWER : PATIENT: EJ ANTONIO ENCOUNTER: [id number] MEDICAL RECORD#: [id number] ADMISSION DATE: 02/07/2021 DISCHARGE DATE: ATTENDING MD: VALERIO RAMIREZ : AGE: 75 MARITAL STATUS: D DC PLAN ID: [id number] FACILITY: [facility] PRINTED ON: 02/15/21 9:39 CT All edits/amendments must be made on the electronic document DICTATION DATE: 02/15/21938 JOCKEY ROOM CUSTODIAN: FUNMILAYO 02/15/21938 RPT#: [id number] DC DATE: STATUS: ADM IN [facility] [address] [place] [address] END OF REPORT
--- NOTE | 2021-02-15 09:53 | NUR ---
DC EDUCATION PROVIDED BOTH WRITTEN AND VERBAL. VERBALIZED UNDERSTANDING. DENIES FURTHER QUESTIONS. NO IV TO REMOVE. PATIENT DENIES FURTHER NEEDS AND REFUSES HELP TO GET DRESSED. STATES CAN GET SELF READY. WAITING [place] TO HIGH SCHOOL SPORTS COACH.
--- NOTE | 2021-02-18 10:18 | MORECARE ---
CASE MANAGEMENT DISCHARGE SUMMARY PATIENT: EJ ANTONIO UNIT: [id number] ADM DATE: 02/07/21 AGE: 75 : 47 SEX: M ROOM/BED: D.2209 AUTHOR: TOSHIA,DOC PHYSICIAN: REFERRING PHYSICIAN: ADOLPH VARMA MD DATE OF SERVICE: 02/18/21 Case Management Discharge Planning Summary COMMENTS ENTERED DATE: 02/15/21 9:37 CT COMMENT TYPE: Discharge Planning REVIEWER: Sobia Morrison PATIENT DISCHARGING TODAY AT 10:00 THEY WILL TRANSPORT HIM, HE IS A LONG-TERM RESIDENT ENTERED DATE: 02/13/21 12:02 CT COMMENT TYPE: Discharge Planning REVIEWER: Sobia Morrison I CALLED OUT TO [facility] AND SPOKE WITH GRIFFIN AND GAVE HER AN UPDATE ON WHAT THE MD WAS RECOMMEND AND HOW THE PATIENT WOULD LIKE TO GET TREATMENT FROM DR PATINO. SHE STATED THAT SHE WOULD CALL HIM AND TRY TO SPEAK WITH HIM AND GET WITH HER ADMIN AND GET BACK WITH ME CM TO FOLLOW AND ASSIST ENTERED DATE: 02/13/21 8:12 CT COMMENT TYPE: Discharge Planning REVIEWER: Sobia Morrison SPOKE WITH GENNY HANSEN AT [facility] TO SEE IF THIS WOULD BE AN OPTION, FAXED REFERAL OVER TO [facility] ENTERED DATE: 02/12/21 12:57 CT COMMENT TYPE: Discharge Planning REVIEWER: Sobia Morrison CM met with patient to complete initial dc planning assessment. CM educated patient on the CM role and verbal consent given by patient to complete assessment. Patient lives at [facility] where he is a long-term resident. He has lived there for a little more than 2 years. At discharge patient plans to return home to [facility] and feels this is a safe discharge. He uses a wheelchair at the facility. He is not on any O2 at [facility]. Patient denied known discharge needs at this time. IMM served and explained. CM will continue to follow and will assist as needed with dc plans/needs. DCP REVIEW SUMMARY ANTICIPATED D/C DATE: EXPECTED LOS : CASE STATUS: DCP Initiated INITIAL REVIEW: 02/07/2021 INITIAL REVIEWER: Sobia Morrison FINAL DISCHARGE DISPOSITION: : FINAL REVIEWER: FINAL REVIEW DATE: DCP Focus Questions & Answers QUESTION: ANSWER : PATIENT: EJ ANTONIO ENCOUNTER: [id number] MEDICAL RECORD#: [id number] ADMISSION DATE: 02/07/2021 DISCHARGE DATE: 02/15/2021 ATTENDING MD: VALERIO RAMIREZ : AGE: 75 MARITAL STATUS: D DC PLAN ID: [id number] FACILITY: [facility] PRINTED ON: 02/18/21 10:18 CT All edits/amendments must be made on the electronic document DICTATION DATE: 02/18/21 1018 CLAIMS CUSTOMER SERVICE REPRESENTATIVE: FUNMILAYO 02/18/21 1018 RPT#: [id number] DC DATE:02/15/21 STATUS: DIS IN [facility] [address] [place] [address] END OF REPORT
--- NOTE | 2021-02-19 11:02 | MORECARE ---
CASE MANAGEMENT DISCHARGE SUMMARY PATIENT: EJ ANTONIO UNIT: [id number] ADM DATE: 02/07/21 AGE: 75 : 47 SEX: M ROOM/BED: D.2209 AUTHOR: TOSHIA,DOC PHYSICIAN: REFERRING PHYSICIAN: ADOLPH VARMA MD DATE OF SERVICE: 02/19/21 Case Management Discharge Planning Summary COMMENTS ENTERED DATE: 02/15/21 9:37 CT COMMENT TYPE: Discharge Planning REVIEWER: Sobia Morrison PATIENT DISCHARGING TODAY AT 10:00 THEY WILL TRANSPORT HIM, HE IS A [facility] RESIDENT ENTERED DATE: 02/13/21 12:02 CT COMMENT TYPE: Discharge Planning REVIEWER: Sobia Morrison I CALLED OUT TO [facility] AND SPOKE WITH GRIFFIN AND GAVE HER AN UPDATE ON WHAT THE MD WAS RECOMMEND AND HOW THE PATIENT WOULD LIKE TO GET TREATMENT FROM DR PATINO. SHE STATED THAT SHE WOULD CALL HIM AND TRY TO SPEAK WITH HIM AND GET WITH HER ADMIN AND GET BACK WITH ME CM TO FOLLOW AND ASSIST ENTERED DATE: 02/13/21 8:12 CT COMMENT TYPE: Discharge Planning REVIEWER: Sobia Morrison SPOKE WITH GENNY HANSEN AT [facility] TO SEE IF THIS WOULD BE AN OPTION, FAXED REFERAL OVER TO [facility] ENTERED DATE: 02/12/21 12:57 CT COMMENT TYPE: Discharge Planning REVIEWER: Sobia Morrison CM met with patient to complete initial dc planning assessment. CM educated patient on the CM role and verbal consent given by patient to complete assessment. Patient lives at [facility] where he is a long-term resident. He has lived there for a little more than 2 years. At discharge patient plans to return home to [facility] and feels this is a safe discharge. He uses a wheelchair at the facility. He is not on any O2 at [facility]. Patient denied known discharge needs at this time. IMM served and explained. CM will continue to follow and will assist as needed with dc plans/needs. DCP REVIEW SUMMARY ANTICIPATED D/C DATE: EXPECTED LOS : CASE STATUS: DCP Initiated INITIAL REVIEW: 02/07/2021 INITIAL REVIEWER: Sobia Morrison FINAL DISCHARGE DISPOSITION: : FINAL REVIEWER: FINAL REVIEW DATE: DCP [employer] Questions & Answers QUESTION: ANSWER : PATIENT: EJ ANTONIO ENCOUNTER: [id number] MEDICAL RECORD#: [id number] ADMISSION DATE: 02/07/2021 DISCHARGE DATE: 02/15/2021 ATTENDING MD: VALERIO RAMIREZ : AGE: 75 MARITAL STATUS: D DC PLAN ID: [id number] FACILITY: [facility] PRINTED ON: 02/19/21 11:01 CT All edits/amendments must be made on the electronic document DICTATION DATE: 02/19/211100 [employer]EARCH ASSOCIATE MOLECULAR BIOLOGY: FUNMILAYO 02/19/21 110 RPT#: [id number] DC DATE:02/15/21 STATUS: DIS IN [facility] [address] [place] [address] END OF REPORT
== END 2021-02-15 11:35 | DRG 638 ==
LOC: D.ER 12:17 → D.MS 13:49
PROVIDERS: Emergency Medicine; ADMIT Emergency Medicine; ATTEND Emergency Medicine
DX: E11.69 Type 2 diabetes mellitus with other specified complication (principal); L97.429 Non-pressure chronic ulcer of left heel and midfoot with unspecified severity; M86.172 Other acute osteomyelitis, left ankle and foot; M86.9 Osteomyelitis, unspecified; L03.116 Cellulitis of left lower limb; E11.40 Type 2 diabetes mellitus with diabetic neuropathy, unspecified; E11.51 Type 2 diabetes mellitus with diabetic peripheral angiopathy without gangrene; E11.621 Type 2 diabetes mellitus with foot ulcer; Z79.4 Long term (current) use of insulin; I25.10 Atherosclerotic heart disease of native coronary artery without angina pectoris; Z89.511 Acquired absence of right leg below knee; Z91.19 Patient's noncompliance with other medical treatment and regimen